=== PATIENT | female | born 1975 | race Caucasian/White ===

== ENCOUNTER 2024-11-15 12:52 | Inpatient (IN) | payer MEDICAID ==
[~2024-11-15] VITALS: Ht 157.5 cm; Wt 77.1 kg
[~2024-11-15 12:52] MED LIST: ASPI-1497 MT; ATOR10TA69 MT
[2024-11-15 13:04] VITALS: O2SAT 100
[2024-11-15] MEDS: SODIUM CHLORIDE 0.9% (SEPSIS BOLUS) IV ONE (14:00)
[2024-11-15 14:36] LABS: CLARITY URINE CLEAR (CLEAR); COLOR URINE YELLOW (YELLOW); GLUCOSE URINE 2+ (NEGATIVE); KETONES URINE NEGATIVE (NEGATIVE); LEUKOCYTE ESTERASE URINE NEGATIVE (NEGATIVE); NITRITE URINE NEGATIVE (NEGATIVE); OCCULT BLOOD URINE 1+ (NEGATIVE); PH URINE 7.0 (4.5-8.0); PROTEIN URINE NEGATIVE (NEGATIVE); SPECIFIC GRAVITY URINE 1.012 (1.005-1.030); UROBILINOGEN URINE 0.2 E.U./dL (0.2-1.0)
[2024-11-15] MEDS: CEFTRIAXONE 1GM/50ML 50 ML IV ONE (15:11)
[2024-11-15 15:20] LABS: HEMATOCRIT. 37.1 % (36.0-48.0); HEMOGLOBIN. 12.5 g/dL (12.0-16.0); MEAN PLATELET VOLUME 9.1 fl (7.4-10.4); PLATELET 321 x1000/uL (130-400); RED BLOOD CELL COUNT 4.04 mill/uL (4.2-5.4); RED CELL DISTRIBUTION WIDTH 13.1 % (11.6-14.6)
[2024-11-15 15:25] LABS: *AMPHETAMINES SCREEN URINE NEGATIVE (NEGATIVE); *BARBITURATES SCREEN URINE NEGATIVE (NEGATIVE); *BENZODIAZEPINES SCREEN URINE NEGATIVE (NEGATIVE)
[2024-11-15 15:26] LABS: INR 1.0
[2024-11-15 15:26] LABS: *COCAINE SCREEN URINE NEGATIVE (NEGATIVE); CANNABINOID URINE SCREEN NEGATIVE (NEGATIVE); ECSTASY MDMA SCREEN URINE NEGATIVE (NEGATIVE); METHADONE URINE SCREEN NEGATIVE (NEGATIVE); OPIATES URINE SCREEN NEGATIVE (NEGATIVE); PHENCYCLIDINE URINE SCREEN NEGATIVE (NEGATIVE)
[2024-11-15 15:27] LABS: BACTERIA URINE TRACE; SQUAMOUS EPITHELIAL CELL URINE 1+ /lpf (RARE/1+); WBC URINE 0-2 /hpf (0-2)
[2024-11-15 15:31] LABS: HCG SCREEN NEGATIVE
[2024-11-15 15:32] LABS: CREATININE 1.0 mg/dL (0.6-1.0); ETHANOL BLOOD < 10 mg/dL (<10); TROPONIN I HIGH SENSITIVITY 11 ng/L (3.0-34); UREA NITROGEN BLOOD 11 mg/dL (9-23)
[2024-11-15 15:34] LABS: ASPARTATE AMINOTRANSFERASE 22 IU/L (<34); BILIRUBIN DIRECT 0.1 mg/dL (<=3.0); BILIRUBIN TOTAL 0.4 mg/dL (0.1-1.0); PROTEIN TOTAL 7.2 g/dL (6.0-8.3)
[2024-11-15 15:36] LABS: T4 FREE 1.10 ng/dL (0.89-1.76)
[2024-11-15 15:51] LABS: LYMPHOCYTES % MANUAL 7.0 % (20.0-60.0); MONOCYTES % MANUAL 5.0 % (2.0-8.0); NEUTROPHILS % MANUAL 88.0 % (45.0-75.0)
[2024-11-15 15:52] LABS: PLATELET ESTIMATE NORMAL
[2024-11-15] MEDS ORDERED: KETOROLAC 30MG/ML VIAL IV ONE (16:15)
[2024-11-15] MEDS: KETOROLAC 30MG/ML VIAL IV NR (19:05)
[2024-11-15 20:00] VITALS: BP_SYST 120; BP_SYST 165; BP_DIAS 54; BP_DIAS 95; PULSE 107; PULSE 79; RESP 17; RESP 21; TEMP 36.5; O2SAT 100; O2SAT 97
[2024-11-15] MEDS ORDERED: HYDRALAZINE 20MG/ML VIAL IV PRN (20:30)
[2024-11-15] MEDS ORDERED: DEXTROSE 50% WATER 50ML SYRINGE IV PRN (20:30)
[2024-11-15] MEDS ORDERED: ONDANSETRON HCL 4MG/2ML INJ IV PRN (20:30)
[2024-11-15] MEDS ORDERED: IPRATROPIUM/ALBUTEROL 0.5-3(2.5)MG/3ML NEB HHN PRN (20:30)
[2024-11-15] MEDS: BLOOD SUGAR DIAGNOSTIC STRIP TEST SCH (21:00)
[2024-11-15] MEDS: SODIUM CHLORIDE 0.45% 1,000 ML IV SCH (22:11)
[2024-11-15] MEDS: ACETAMINOPHEN 325MG TABLET PO PRN (22:48)
[2024-11-16] MEDS ORDERED: LORAZEPAM 0.5MG TABLET PO PRN (00:45)
[2024-11-16] MEDS: MELATONIN 3MG TABLET PO SCH (00:56)
[2024-11-16] MEDS: AMLODIPINE 5MG TABLET PO SCH (00:59)
[2024-11-16 01:30] VITALS: BP 165/95; PULSE 109; RESP 21; TEMP 36.5292
[2024-11-16] MEDS: POTASSIUM CHLORIDE 20MEQ TABLET SR PO NR (05:52)
[2024-11-16 08:00] VITALS: BP 144/81; PULSE 91; RESP 19; TEMP 36.7; O2SAT 98
[2024-11-16 11:18] LABS: BASOPHILS % 0.6 % (0.0-2.0); EOSINOPHILS % 0.2 % (0.0-5.0); HEMATOCRIT. 41.6 % (36.0-48.0); HEMOGLOBIN. 13.7 g/dL (12.0-16.0); LYMPHOCYTES % 15.8 % (20.0-50.0); MEAN PLATELET VOLUME 8.8 fl (7.4-10.4); MONOCYTES % 5.5 % (2.0-8.0); NEUTROPHILS % 77.9 % (40.0-76.0); PLATELET 337 x1000/uL (130-400); RED BLOOD CELL COUNT 4.50 mill/uL (4.2-5.4); RED CELL DISTRIBUTION WIDTH 13.4 % (11.6-14.6)
[2024-11-16 11:33] LABS: CREATININE 0.9 mg/dL (0.6-1.0); TRIGLYCERIDE 108 mg/dL (0-150)
[2024-11-16 11:34] LABS: CREATINE KINASE MB FRACTION 0.8 ng/mL (0.5-3.6); LDL CHOLESTEROL 124 mg/dL (5-100); TROPONIN I HIGH SENSITIVITY 11 ng/L (3.0-34); UREA NITROGEN BLOOD 6 mg/dL (9-23)
[2024-11-16 11:35] LABS: ASPARTATE AMINOTRANSFERASE 22 IU/L (<34); BILIRUBIN TOTAL 0.9 mg/dL (0.1-1.0); PHOSPHORUS 1.9 mg/dL (2.5-4.9)
[2024-11-16 11:36] LABS: PROTEIN TOTAL 7.4 g/dL (6.0-8.3)
[2024-11-16 11:38] LABS: T4 FREE 1.24 ng/dL (0.89-1.76)
[2024-11-16 12:00] VITALS: BP 130/77; PULSE 95; RESP 18; TEMP 36.7; O2SAT 98
[2024-11-16] MEDS ORDERED: CEFTRIAXONE 1GM/50ML 50 ML IV SCH (15:00)
[2024-11-16 16:30] VITALS: BP 130/77; PULSE 94; RESP 18; TEMP 36.7; O2SAT 98
[2024-11-16 20:00] VITALS: BP 138/77; PULSE 106; RESP 22; TEMP 36.7; O2SAT 99
[2024-11-17] VITALS: BP 110/65; PULSE 81; RESP 21; TEMP 36.1; O2SAT 97
[2024-11-17 04:00] VITALS: BP 119/65; PULSE 83; RESP 19; TEMP 36.6; O2SAT 100
[2024-11-17 08:00] VITALS: BP 142/75; PULSE 86; RESP 17; TEMP 36.7; O2SAT 100
[2024-11-17 12:00] VITALS: BP 127/78; PULSE 82; RESP 17; TEMP 36.4; O2SAT 98
[2024-11-17] MEDS ORDERED: AMLO5TAB88 PO (13:04)
[2024-11-23] MEDS ORDERED: ASPI-1497 PO (08:09)
[2024-11-23] MEDS ORDERED: ATOR10TA69 MT (08:09)
[2024-11-23] MEDS ORDERED: AMLO5TAB88 PO (08:09)
== END 2024-11-17 14:50 | disposition home or self-care (01) | DRG 199 ==
LOC: ER 12:52 → EDBEDREQTM 16:22 → EDBEDREQ 16:22 → ENRESERV 17:41 → 6WST 20:01
PROVIDERS: ADMIT Internal Medicine; ATTEND Internal Medicine
DX: I16.0 Hypertensive urgency (principal); R65.10 Systemic inflammatory response syndrome (SIRS) of non-infectious origin without acute organ dysfunction; I50.32 Chronic diastolic (congestive) heart failure; E87.6 Hypokalemia; I11.0 Hypertensive heart disease with heart failure; R73.9 Hyperglycemia, unspecified; E78.5 Hyperlipidemia, unspecified; T50.995A Adverse effect of other drugs, medicaments and biological substances, initial encounter; D72.829 Elevated white blood cell count, unspecified; F19.90 Other psychoactive substance use, unspecified, uncomplicated; R00.0 Tachycardia, unspecified; Z55.6 Problems related to health literacy; Z79.899 Other long term (current) drug therapy; Y92.89 Other specified places as the place of occurrence of the external cause
CPT/HCPCS: 36415; 71045; 80048; 80053; 80061; 80076; 80305; 80320; 81003; 82384; 82550; 82553; 82962; 83036; 83605; 83735; 83880; 84100; 84145; 84439; 84443; 84484; 84703; 85025; 85379; 93005; 93970; 99291; A4606; J0696; J1885; J7030; G0480